=== PATIENT | female | born 1980 | race Caucasian/White ===

== ENCOUNTER 2016-10-08 19:44 | Emergency (ER) | payer MEDICAID ==
[2016-10-08 20:00] VITALS: O2SAT 95
--- NOTE | 2016-10-08 20:32 | UCPHY ---
H & P Time Seen by Provider: 10/08/16 20:16 Patient Type: Established () HPI/ROS: This patient presents with a chief complaint of 2 abscesses. 1 involving the medial aspect of the left thigh proximally and the other over the sacrum. She has had multiple abscesses in the past and from her description it sounds like she has had these involving areas other than where a pilonidal cyst might develop. Symptoms have been worsening over. Of 2 or 3 days. She denies any fever constitutional symptoms. At home she has been using ibuprofen and hot compresses. Smoking Status: Light smoker Physical Exam: This is a well-developed well-nourished female who is in no acute distress. She is alert cooperative and entirely appropriate. Examination of the presacral area reveals an area of mild swelling with tenderness but no fluctuance and I do not believe that this lesion is ready for and I and D. The 2nd lesion involves the proximal aspect of the left medial thigh which is fairly small measuring less than 2 x 2 cm. There is no overlying erythema the area is quite tender. Constitutional: Initial Vital Signs Temperature (C) 37.2 C 10/08/16 19:54 Heart Rate 92 10/08/16 19:54 Respiratory Rate 16 10/08/16 19:54 Blood Pressure 134/81 H 10/08/16 19:54 O2 Sat (%) 95 10/08/16 19:54 O2 Delivery Mode Room Air Allergies/Adverse Reactions: No Known Allergies Allergy (Verified 10/08/16 19:59) Home Medications: Medication Instructions Recorded Cephalexin [Keflex] 500 mg PO QID #28 cap 10/08/16 Medical Decision Making Procedures: The lesion on the medial thigh was prepped and then infiltrated with 0.5% Marcaine with epinephrine. The skin was prepped and then a small incision was made and a moderate amount of pus was drained. This abscess is quite superficial in consequently the wound was not packed. A dressing was applied. The Keflex was prescribed more for the early pilonidal cyst them for the thigh lesion. Departure - Departure Disposition: Home, Routine, Self-Care Clinical Impression: Cutaneous abscess Qualifiers: Site of cutaneous abscess: extremity Site of cutaneous abscess of extremity: lower extremity Laterality: left Qualifier Code: (L02.416) Cutaneous abscess of left lower limb Condition: Good Instructions: Abscess (ED) Additional Instructions: Return in 2 days for re-evaluation and packing removal. Apply warm compresses to both areas several times daily. Sitz bath as 3 or 4 times daily would be ideal. Adult Pain & Fever Control: We recommend Acetaminophen (Tylenol) and Ibuprofen (Motrin, Advil) for pain and fever control. When fever is high or pain severe, both drugs can be used at the same time, but at different intervals. Please note the time differences. Your dose is: Acetaminophen [650]mg every 4 to 6 hours ibuprofen [600]mg every [6] hours with food OR naproxen Sodium (Aleve) [440]mg every 12 hours. Note: do not take Acetaminophen with Hydrocodone (Vicodin, Lortab) or Oxycodone (Percocet). These medications also contain Acetaminophen. No more than 3000 mg of Acetaminophen should be taken in 24 hours (for an adult) . The maximal dose of ibuprofen that it is safe in a 24-hour period is 2400 mg. You may take 400 mg every 4 hours, 600 mg every 6 hours or 800 mg every 8 hours safely. Referrals: [facility] [Outside] - As per Instructions Prescriptions: Cephalexin [Keflex] 500 mg PO QID #28 cap - PQRS PQRS Measurement: Not applicable
[2016-10-08] MEDS ORDERED: CEPHALEXIN 500MG PREPACK#4 BTL TAKEHOME ONE ×2 (20:48→21:04)
[2016-10-08] MEDS ORDERED: HYDROCOD/APAP 5/325 PREPACK#6 BTL TAKEHOME ONE ×2 (20:49→21:04)
[2016-10-08 21:03] VITALS: BP 125/97; PULSE 88; RESP 18; TEMP 97.9
== END 2016-10-08 21:00 | disposition home or self-care (01) ==
LOC: CED 19:44
PROC: 0H9JXZZ Drainage of Left Upper Leg Skin, External Approach (ICD-10-PCS; principal; 2016-10-08)
DX: L02.416 Cutaneous abscess of left lower limb (principal); R22.9 Localized swelling, mass and lump, unspecified; Z72.0 Tobacco use
CPT/HCPCS: 93010-PO; 99214-PO; G0463-PO

== ENCOUNTER 2016-10-19 20:11 | Emergency (ER) | payer MEDICAID ==
[2016-10-19 20:59] VITALS: BP 128/90; PULSE 97; RESP 16; TEMP 98.2; O2SAT 95
[2016-10-19] MEDS ORDERED: HYDROCOD/APAP 5/325 PREPACK#6 BTL TAKEHOME ONE (21:36)
[2016-10-19] MEDS ORDERED: CEPHALEXIN 500 MG CAP PO ONE (21:36)
--- NOTE | 2016-10-19 21:37 | UCPHY ---
H & P Time Seen by Provider: 10/19/16 21:02 Patient Type: Established HPI/ROS: This patient has a feeling of a boil on her buttock. She has had multiple episodes of prior abscesses. Her most recent culture results grew Proteus and Staph epidermidis both sensitive to Keflex. She was here in the clinic on October 08 for a buttock abscess I&D but no packing at this time she reports that the recurrences in feeling like the same location her. She also has small axillary boil that ruptured open spontaneously in the bath today. ROS: Constitutional: No fevers HEENT no complaints 5 point ROS is otherwise negative Past Medical/Surgical History: Multiple abscesses in the past as per HPI. No history of MRSA Smoking Status: Light smoker Physical Exam: Physical Exam Vital signs are normal. General: No acute distress Eyes: Pupils equal and react to light. Extraocular motions are intact. Cardiac: Brisk capillary refill is intact throughout. Skin: No rash or pallor. 2 cm fluctuant lesion in the left buttock near the gluteal fold midway down the buttock. There is mild erythema to the skin surrounding this. She has associated tenderness. Neuro: Alert Constitutional: Initial Vital Signs Temperature (C) 36.8 C 10/19/16 20:54 Heart Rate 97 10/19/16 20:54 Respiratory Rate 16 10/19/16 20:54 Blood Pressure 128/90 H 10/19/16 20:54 O2 Sat (%) 95 10/19/16 20:54 O2 Delivery Mode Room Air Allergies/Adverse Reactions: No Known Allergies Allergy (Verified 10/19/16 20:53) Home Medications: Medication Instructions Recorded Cephalexin [Keflex (*)] 500 mg PO TID #21 cap 10/19/16 MDM/Departure - MDM Procedures: After verbal consent I used chlorhexidine scrub, 1% plain lidocaine with sodium bicarb buffer, 27 gauge needle-3 mm injected with good effect, T-shaped incision with 15 scalpel blade proximally mm with release of moderate purulent material followed by massaged the area with small release of further discharge. I then probed the lesion with a Marisa clamp with no further loculations. We then irrigated the lesion with saline and pressure with clear return. Quarter- inch gauze was packed into the wound. Counseled the patient regarding abscess care. There is no complications. Culture sent and pending. 1st dose of Keflex is given p.o. Medications Given: Discontinued Medications Acetaminophen/Hydrocodone Bitart ([place] 5/325mg Prepack#6) 1 btl TAKEHOME EDNOW ONE Stop: 10/19/16 21:37 Last Admin: 10/19/16 21:43 Dose: 1 btl Cephalexin HCl (Keflex) 500 mg PO EDNOW ONE PRN Reason: Protocol Stop: 10/19/16 21:37 Last Admin: 10/19/16 21:41 Dose: 500 mg - Depart Disposition: Home, Routine, Self-Care Clinical Impression: Left buttock abscess Instructions: Abscess (ED) Additional Instructions: Diagnosis: Buttock abscess Plan: Ibuprofen and Tylenol or Vicodin for pain control as needed. No driving , alcohol or come Vicodin Keflex antibiotic Try to leave the packing in for 2-3 days and then pulled out. Thereafter clean the wound daily with warm soapy water Inflatable donut to sit on for comfort Return for any significant worsening despite the treatment plan Prescriptions: Cephalexin [Keflex (*)] 500 mg PO TID #21 cap Referrals: NONE *PRIMARY CARE P,. [Primary Care Provider] - As per Instructions - PQRS PQRS Measurement: NA
== END 2016-10-19 21:48 | disposition home or self-care (01) ==
LOC: CED 20:11
PROC: 0H98XZZ Drainage of Buttock Skin, External Approach (ICD-10-PCS; principal; 2016-10-19)
DX: L02.31 Cutaneous abscess of buttock (principal); Z72.0 Tobacco use
CPT/HCPCS: 99214-PO; G0463-PO